=== PATIENT | female | born 1960 | race Caucasian/White ===

== ENCOUNTER 2017-03-21 11:38 | Emergency (ER) | payer MEDICAID ==
--- NOTE | 2017-03-21 11:53 | ED Physician Chart ---
Chief Complaint/HPI - Patient Information Date Seen:: 03/21/17 Time Seen:: 11:45 Chief Complaint:: Skin lesion in R forearm for about 4 days. History of Present Illness:: Pt has noticed skin lesion in R forearm for about 4 days. No known insect bite or injury. No fever. No dyspnea. No N/V/D. No lightheadedness. Allergies:: PCN Vitals:: see Nuse Note. Historian:: Patient Family MD/PCP:: Unknown LMP:: Postmenopausal. Review:: Nurse's Note Reviewed Review of Systems - Review of Systems General/Constitutional: No fever, No loss of appetite Skin: Other (Skin lesion in R forearm.) Head: No headache, No light-headedness Neck: No neck pain, No swelling, No thyromegaly, No stiffness, No mass noted Cardio Vascular: No edema Pulmonary: No SOB, No cough, No sputum, No wheezing GI: No nausea, No vomiting, No diarrhea, No pain Musculoskeletal: No bone or joint pain, No back pain, No muscle pain Hematopoietic: No bruising, No lymphadenopathy Allergic/Immuno: No urticaria, No angioedema Neurological: No syncope, No focal symptoms, No weakness, No paresthesia, No headache, No confusion Past Medical History - Past Medical History Past Medical History: No significant medical hx Family History: Heart disease (in mother and MGM), Diabetes Melitus (Sister and P aunt.), HTN (Mother), Cancer (Father, PGF, MGM and PGM.) Social History: Non Smoker, No Alcohol, No Drug Use, , Lives Alone, Employed 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 Surgical History: (x 3 with last one 29 y/a.), other (L oophorectomy . L knee arthoscopic surgery.) Medication: None Physical Exam - Physical Examination General/Constitutional: Awake, Well-developed, well-nourished, Alert, No distress, GCS 15, Non-toxic appearing, Ambulatory Other Gen/Cons comments:: Breathes comfortably, speaks clearly, and ambulates without difficulty. Head: Atraumatic Eyes: Lids, conjuctiva normal, PERRL, EOMI Skin: No ecchymosis, Well hydrated, No lymphadenopathy Other Skin comments:: RUE: There is an approx. 0.75 cm indurated slightly erythematous lesion at proximal dorsum of R forearm. No open wound, red streaking or peripheral erythema. FROM of all joints. No detectable motor/sensory/vascular deficit. Good distal pulse. ENMT: Lips, teeth, gums nl, Oropharynx nl Neck: Nontender, Full ROM w/o pain, No nuchal rigidity, No mass, No stridor Respiratory: Nl effort/Exclusion, Clear to Auscultation, No Wheeze/Rhonchi/Rales Cardio Vascular: RRR, No murmur, gallop, rubs GI: No tenderness/rebounding/guarding, No organomegaly, Normal BS's, Nondistended, No mass/bruits Other GI comments:: Obese but soft. Extremities: No tenderness or effusion, Full ROM, normal strength in all extremities, No edema, Normal digits & nails Other Extremities comments:: see also Skin exam above. Neuro/Psych: Alert/oriented (oriented x 3), Judgement/insight normal, Mood normal, Normal gait, No focal deficits ED Septic Shock - . Is Septic Shock (SBP<90, OR Lactate>4 mmol\L) present?: No Reassessment (Disposition) - Reassessment Reassessment:: 1212 Pt remains stable. Pt requests to go home now. Aftercare instructions have been given. - Diagnosis Diagnosis:: Early abscess in R foreram, stable. - Aftercare/Follow up Instructions Aftercare/Follow-Up Instructions:: Refer to Discharge Instructions Notes:: Warm compress to affected area in R forearm x 15 minutes q1-2h as directed. May take Tylenol 500 mg tab one tab po q4-6h prn pain. F/U with Dr. Coronel or PCP of pt's choice in 2-3 days for recheck. Return to ER immediately if condition worsens or if any further questions/problems. Medication Prescribed:: Bactrim DS one tab po q12h for 10 days. D-20 R-0 - Patient Disposition Discharge/Transfer:: Home Time:: 12:15 Condition at Disposition:: Stable
== END 2017-03-21 12:41 | disposition home or self-care (01) ==
LOC: ER 11:38
DX: L02.413 Cutaneous abscess of right upper limb (principal); Z88.0 Allergy status to penicillin
CPT/HCPCS: Z7502